=== PATIENT | male | born 1980 | race Caucasian/White ===

== ENCOUNTER 2017-07-21 08:34 | Emergency (ER) | payer OTHER ==
--- NOTE | 2017-07-21 09:25 | ED Physician Documentation ---
PD HPI SKIN - Stated complaint Stated Complaint: R LEG BUG BITE - Chief complaint Chief Complaint: Wound - History obtained from History obtained from: Patient - Additional information Additional information: 3 days ago patient had body aches and chills, and noticed that he had a small tender red area on his right posterior thigh.He had slightly increased swelling over the next day or so, at one point using X-Acto knife to see if there was fluid to drain, he said some clear fluid drainage no pus.His symptoms are actually improving with less swelling of the area, however he became concerned that he could have a serious dangerous spider bite.He has not seen any spiders or had a bug bite. Today and yesterday he reports feeling a little bit of stiffness in that leg that improves upon getting up and moving around. He has no history of skin infections and no history of IV drug abuse. Review of Systems Constitutional: reports: Fatigue. denies: Fever PD PAST MEDICAL HISTORY - Past Medical History Past Medical History: No Derm: Eczema - Past Surgical History Past Surgical History: Yes - Present Medications Home Medications: Ambulatory Orders Medication Instructions Recorded Confirmed Sulfamethox/Trimeth 800/160 1 each PO BID #14 tablet 07/21/17 [Bactrim Ds 800/160] - Allergies Allergies/Adverse Reactions: Allergies Allergy/AdvReac Type Severity Reaction Status Date / Time No Known Drug Allergies Allergy Verified 07/21/17 08:47 - Social History Does the pt smoke?: No Smoking Status: Never smoker - Immunizations Immunizations are current?: Yes PD ED PE NORMAL - Vitals Vital signs reviewed: Yes - General General: Alert and oriented X 3, No acute distress - HEENT HEENT: Atraumatic - Neck Neck: Supple, no meningeal sign - Respiratory Respiratory: No respiratory distress - Derm Derm: Other (Less than 5 cm area of erythema right posterior thigh, no fluctuance or induration. 1-2 cm area of dark skin without skin breakdown in the center of erythema.) Results - Vitals Vitals: Vital Signs - 24 hr 07/21/17 08:47 Temperature 36.4 C L Heart Rate 105 H Respiratory 18 Rate Blood Pressure 162/122 H O2 Saturation 97 Oxygen O2 Source Room air PD MEDICAL DECISION MAKING - ED course ED course: 37-year-old male with small area of erythema Consistent with cellulitis.This time patient does not have abscess. He has complained of some morning stiffness with ambulating, I do not have a concern for infected joint as he has full normal range of motion of his hip with normal weightbearing. His lower extremity strength is intact. He has had no purulent drainage, and no history of MRSA. He understands return precautions to the emergency department. He had mild tachycardia as well as hypertension on arrival to the emergency department I suspect this is related to anxiety over possibility of spider bite and emergency department visit, I do not suspect sepsis. Departure - Departure Disposition: 01 Home, Self Care Clinical Impression: Cellulitis of right thigh Condition: Good Instructions: ED Infec Skin Cellulitis Prescriptions: Sulfamethox/Trimeth 800/160 [Bactrim Ds 800/160] 1 each PO BID #14 tablet Comments: You likely have a small skin infection and were prescribed antibiotics for this. You should have a recheck of your skin infection in the next couple of days with your primary doctor or the emergency department if it has not improved or gone away.If you have worsening symptoms such as fevers, spreading redness, increasing pain you should return to the emergency department.
[2017-07-21 10:15] VITALS: BP 166/122
== END 2017-07-21 10:15 | disposition home or self-care (01) ==
LOC: ED 08:34
DX: L03.115 Cellulitis of right lower limb (principal)
CPT/HCPCS: 99283

== ENCOUNTER 2018-09-23 08:20 | Emergency (ER) | payer SELFPAY ==
--- NOTE | 2018-09-23 09:02 | ED Physician Documentation ---
PD HPI SKIN - Stated complaint Stated Complaint: LUMP ON NECK - Chief complaint Chief Complaint: General - History obtained from History obtained from: Patient - History of Present Illness Timing - onset: How many days ago (4) Timing - duration: Days (4) Timing - details: Gradual onset, Still present Location: Neck Quality / character: Painful, Discolored, Raised, Swelling, Draining Associated symptoms: No: Fever, Myalgias, Joint pain, Headache Similar symptoms before: No diagnosis Recently seen: Not recently seen - Additional information Additional information: 38-year-old previously well male has developed what he feels is an ingrown hair on the back of his neck they area has been swollen and tender he has had a slight amount of thick white drainage from the tip of this area. He has not had a fever he has not otherwise ill. Review of Systems Constitutional: denies: Fever Eyes: denies: Decreased vision Ears: denies: Ear pain Nose: denies: Congestion Throat: denies: Sore throat Respiratory: denies: Cough GI: denies: Nausea, Vomiting : denies: Dysuria Skin: reports: Lesions Musculoskeletal: reports: Neck pain. denies: Back pain, Extremity pain PD PAST MEDICAL HISTORY - Past Medical History Past Medical History: No Derm: Eczema - Past Surgical History Past Surgical History: Yes - Present Medications Home Medications: Ambulatory Orders Medication Instructions Recorded Confirmed Sulfamethoxazole/Trimethoprim 1 each PO BID #14 tablet 09/23/18 [Sulfamethoxazole-Tmp Ds Tablet] - Allergies Allergies/Adverse Reactions: Allergies Allergy/AdvReac Type Severity Reaction Status Date / Time No Known Drug Allergies Allergy Verified 09/23/18 08:28 - Social History Does the pt smoke?: No Smoking Status: Never smoker Does the pt drink ETOH?: No Does the pt have substance abuse?: No - Immunizations Immunizations are current?: Yes - POLST Patient has POLST: No PD ED PE NORMAL - Vitals Vital signs reviewed: Yes (tachy and hypertensive ) - General General: Alert and oriented X 3, No acute distress, Well developed/nourished - HEENT HEENT: Atraumatic, PERRL, EOMI - Neck Neck: Supple, no meningeal sign, No bony TTP, Other (opver the posterior aspect of the neck is a pustule with a deep wide base that is firm. There is no surrounding erythema and the area is tender but without fluctuance. The mass under the skin is about 2cm round. ) - Respiratory Respiratory: No respiratory distress - Derm Derm: Normal color, Warm and dry, Other (There is an erythematous papular rash over the face consistent with rosacea) - Extremities Extremities: No deformity, No edema - Neuro Neuro: Alert and oriented X 3, No motor deficit, No sensory deficit, Normal speech Eye Opening: Spontaneous Motor: Obeys Commands Verbal: Oriented GCS Score: 15 - Psych Psych: Normal mood, Normal affect Results - Vitals Vitals: Vital Signs - 24 hr 09/23/18 08:26 Temperature 35.7 C L Heart Rate 115 H Respiratory 14 Rate Blood Pressure 157/109 H O2 Saturation 97 Oxygen O2 Source Room air PD MEDICAL DECISION MAKING - ED course Complexity details: considered differential, d/w patient ED course: 38-year-old male with a nonfluctuant mass on the back of his neck appears to have a forming abscess and he will be placed on some Septra. I have discussed with the patient the ripening phenomena and the expectations of treatment including the use of a warm compress for encouragement of blood supply. Departure - Departure Disposition: 01 Home, Self Care Clinical Impression: Abscess Condition: Stable Instructions: ED Staph Infec Abx Tx Only Follow-Up: [facility] [Provider Group] [facility] [Provider Group] Prescriptions: Sulfamethoxazole/Trimethoprim [Sulfamethoxazole-Tmp Ds Tablet] 1 each PO BID #14 tablet
[2018-09-23 09:16] VITALS: BP 154/114
== END 2018-09-23 09:18 | disposition home or self-care (01) ==
LOC: ED 08:20
DX: L02.11 Cutaneous abscess of neck (principal); R21 Rash and other nonspecific skin eruption
CPT/HCPCS: 99283

== ENCOUNTER 2020-07-28 13:52 | Outpatient (CLI) | payer OTHER ==
[2020-07-28 13:13] LABS: C. PNEUMONIAE- RESP PCR PANEL NOT DETECTED
== END 2020-07-28 13:53 | disposition home or self-care (01) ==
LOC: COV 13:52
PROVIDERS: ATTEND Family Medicine
DX: R09.81 Nasal congestion (principal); J34.89 Other specified disorders of nose and nasal sinuses; Z20.828 Contact with and (suspected) exposure to other viral communicable diseases
CPT/HCPCS: 0202U

== ENCOUNTER 2021-01-31 17:17 | Outpatient (CLI) | payer BC | END 2021-01-31 17:18 | disposition home or self-care (01) | LOC: COV 17:17 | PROVIDERS: ATTEND Family Medicine | DX: Z20.822 Contact with and (suspected) exposure to COVID-19 (principal) ==

== ENCOUNTER 2022-07-12 10:41 | Outpatient (CLI) | payer BC ==
--- NOTE | 2022-07-12 12:55 | XRAY Report ---
PROCEDURE: Foot 2 View BILAT INDICATIONS: BILATERAL FOOT PAIN TECHNIQUE: 2 views of each foot were acquired. COMPARISON: None FINDINGS: Bones: No acute fractures or dislocations. No suspicious bony lesions. Mild first MTP joint degene rative changes present bilaterally. A left plantar calcaneal spur is present. Soft tissues: No tibiotalar joint effusion. IMPRESSION: No acute osseous abnormality. If symptoms persist, follow-up radiographs and/or CT or MRI may be help ful for further evaluation. Reviewed by: Lj De La Garza MD on 07/12/2022 12:53 PM PST Approved by: Lj De La Garza MD on 07/12/2022 12:53 PM [facility] Station ID: [id number]
== END 2022-07-12 10:42 | disposition home or self-care (01) ==
LOC: DI 10:41
PROVIDERS: ATTEND Student in an Organized Health Care Education/Training Program
DX: M19.071 Primary osteoarthritis, right ankle and foot (principal); M19.072 Primary osteoarthritis, left ankle and foot; M77.32 Calcaneal spur, left foot